=== PATIENT | female | born 2005 | race African-American/Black ===

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

== ENCOUNTER 2023-08-29 13:01 | Emergency (ER) | payer SELFPAY | END 2023-08-29 15:00 | disposition home or self-care (01) | LOC: CSHERS 13:01 | DX: B00.9 Herpesviral infection, unspecified (principal); Z20.2 Contact with and (suspected) exposure to infections with a predominantly sexual mode of transmission; F17.290 Nicotine dependence, other tobacco product, uncomplicated | CPT/HCPCS: 87529; 99283 ==

== ENCOUNTER 2023-10-13 15:16 | Emergency (ER) | payer SELFPAY, OTHER ==
[2023-10-13] MEDS ORDERED: Ibuprofen 200 MG TAB ONE (15:47)
[2023-10-13] MEDS ORDERED: Acetaminophen 500 MG TAB ONE (15:48)
[2023-10-13] MEDS ORDERED: HYDROcodone/Acetaminophen 5/325 mg Tablet ONE ×2 (16:51→16:54)
== END 2023-10-13 17:00 | disposition home or self-care (01) ==
LOC: CSHERS 15:16
DX: M79.604 Pain in right leg (principal); M25.571 Pain in right ankle and joints of right foot; F17.290 Nicotine dependence, other tobacco product, uncomplicated

== ENCOUNTER 2024-04-06 21:19 | Emergency (ER) | payer OTHER | END 2024-04-06 23:00 | disposition home or self-care (01) | LOC: CSHERS 21:19 | DX: J02.9 Acute pharyngitis, unspecified (principal); R07.9 Chest pain, unspecified; F17.290 Nicotine dependence, other tobacco product, uncomplicated; Z96.642 Presence of left artificial hip joint | CPT/HCPCS: 71046; 87081; 87428; 87430; 93005 ==